=== PATIENT | female | born 2005 | race Hispanic/Latino ===

== ENCOUNTER 2023-03-05 14:15 | Inpatient (IN) | payer OTHER ==
[~2023-03-05] VITALS: Ht 157.5 cm; Wt 78.7 kg
[2023-03-05 14:57] LABS: INFLUENZA TYPE A Negative For Type A (NEGATIVE); INFLUENZA TYPE B Negative For Type B (NEGATIVE)
[2023-03-05 15:04] LABS: SARS-CoV-2, RNA, NAAT NEGATIVE SARS CoV-2 (NEGATIVE)
[2023-03-05 16:03] LABS: BASOPHILS # (AUTO) 0.04 K/uL (0.00-0.20); BASOPHILS % (AUTO) 0.2 % (0.0-5.0); EOSINOPHILS # (AUTO) 0.27 K/uL (0.00-0.70); EOSINOPHILS % (AUTO) 1.4 % (0.0-8.0); HEMATOCRIT 37.8 % (36-48); IMMATURE GRANULOCYTE ABSOLUTE 0.18 K/uL (0-1); LYMPHOCYTES % (AUTO) 5.3 % (21.0-51.0); MEAN CORPUSCULAR HEMOGLOBIN 29.1 pg (27.0-33.0); MEAN CORPUSCULAR HGB CONC 33.6 g/dL (32.0-36.0); MEAN CORPUSCULAR VOLUME 86.7 fL (80-100); MONOCYTES # (AUTO) 1.7 K/uL (0.1-1.0); MONOCYTES % (AUTO) 8.9 % (3.0-13.0); NEUTROPHILS # (AUTO) 15.6 K/uL (1.8-7.7); NEUTROPHILS % (AUTO) 83.2 % (40.0-77.0); PLATELET COUNT (AUTO) 172 K/uL (130-400); RED BLOOD CELL COUNT(AUTO) 4.36 MIL/uL (4.00-5.50); RED CELL DISTRIBUTION WIDTH 13.2 % (11.0-15.5); WHITE BLOOD COUNT (AUTO) 18.8 K/uL (4.8-10.8)
[2023-03-05 16:06] LABS: APPEARANCE,URINE CLOUDY (CLEAR); BILIRUBIN,URINE NEGATIVE (NEGATIVE); COLOR,URINE YELLOW (YELLOW); GLUCOSE, URINE (UA) NEGATIVE (NEGATIVE); KETONES,URINE 60 mg/dL (NEGATIVE); LEUKOCYTE ESTERASE ,URINE 500 Leu/uL (NEGATIVE); NITRATE,URINE 1+ (NEGATIVE); OCCULT BLOOD,URINE MODERATE (NEGATIVE); PROTEIN,URINE 300 mg/dL (NEGATIVE); UROBILINOGEN,URINE 3 mg/dL (0.2-1.0)
[2023-03-05 16:21] LABS: ADD UA MICROSCOPIC YES
[2023-03-05 16:25] LABS: BACTERIA,URINE RARE /HPF (None Seen); MUCUS,URINE MOD LPF (None Seen); NON-SQUAMOUS EPITHELIAL CELL 3 /HPF (0-2); SQUAMOUS EPITHELIAL CELL,UR MOD /HPF (0-2); WBC CLUMP FEW /HPF (0-1); WBC,URINE 51-100 /HPF (0-1)
[2023-03-05 16:32] LABS: CREATININE 0.8 mg/dL (0.5-1.5); POTASSIUM 3.6 mmol/L (3.5-5.1)
[2023-03-05 16:37] LABS: ALBUMIN 2.5 g/dL (3.5-5.0); BILIRUBIN,TOTAL 0.7 mg/dL (0.2-1.0); TOTAL PROTEIN, SERUM 7.6 g/dL (6.0-8.3)
[2023-03-05] MEDS ORDERED: CEFTRIAXONE 1G VIAL IVPB ONE (17:00)
[2023-03-05] MEDS: ACETAMINOPHEN 500 MG TABLET PO PRN (18:04)
[2023-03-05] MEDS: LACTATED RINGERS 1000ML 1,000 ML IV PRN ×2 (18:04→23:30)
[2023-03-05 18:31] LABS: HEMATOCRIT 35.7 % (36-48); MEAN CORPUSCULAR HEMOGLOBIN 29.3 pg (27.0-33.0); MEAN CORPUSCULAR HGB CONC 33.3 g/dL (32.0-36.0); MEAN CORPUSCULAR VOLUME 87.9 fL (80-100); RED BLOOD CELL COUNT(AUTO) 4.06 MIL/uL (4.00-5.50); RED CELL DISTRIBUTION WIDTH 13.3 % (11.0-15.5); WHITE BLOOD COUNT (AUTO) 22.2 K/uL (4.8-10.8)
[2023-03-05 18:47] LABS: INR 0.93 (0.85-1.15); PROTHROMBIN TIME 10.5 SEC (9.6-11.6)
[2023-03-05 18:48] LABS: PARTIAL THROMBOPLASTIN TIME 30.8 SEC (26.3-35.5)
[2023-03-06] MEDS: ACETAMINOPHEN 500 MG TABLET PO PRN ×2 (07:20→21:07)
[2023-03-06 12:10] VITALS: BP 116/74; PULSE 101; RESP 16
[2023-03-06] MEDS: LACTATED RINGERS 1000ML 1,000 ML IV PRN (12:18)
[2023-03-06 13:47] LABS: RAPID PLASMA REAGIN NONREACTIVE (NONREACTIVE)
[2023-03-06 16:27] VITALS: BP 105/69; PULSE 107; RESP 16
[2023-03-06] MEDS: CEFTRIAXONE 1G VIAL IVPB SCH (17:53)
[2023-03-06 19:18] VITALS: BP 112/74; PULSE 115; RESP 18
[2023-03-06 21:07] VITALS: TEMP 99.8
[2023-03-06 23:04] VITALS: BP 102/58; PULSE 105; RESP 18
[2023-03-07] VITALS (7 sets, daily range): BP systolic 108–120; BP diastolic 67–78; PULSE 92–134; RESP 18–20
[2023-03-07] MEDS: LACTATED RINGERS 1000ML 1,000 ML IV PRN ×2 (02:14→18:06)
[2023-03-07 06:48] LABS: HEMATOCRIT 29.9 % (36-48); MEAN CORPUSCULAR HEMOGLOBIN 29.2 pg (27.0-33.0); MEAN CORPUSCULAR HGB CONC 33.8 g/dL (32.0-36.0); MEAN CORPUSCULAR VOLUME 86.4 fL (80-100); RED BLOOD CELL COUNT(AUTO) 3.46 MIL/uL (4.00-5.50); RED CELL DISTRIBUTION WIDTH 13.4 % (11.0-15.5); WHITE BLOOD COUNT (AUTO) 12.6 K/uL (4.8-10.8)
[2023-03-07] MEDS: CEFTRIAXONE 1G VIAL IVPB SCH (18:06)
[2023-03-08] MEDS: LACTATED RINGERS 1000ML 1,000 ML IV PRN (03:10)
[2023-03-08 03:53] VITALS: BP 108/59; PULSE 114; RESP 20
[2023-03-08 08:00] VITALS: BP 117/78; PULSE 110; RESP 18
[2023-03-08] MEDS ORDERED: MACR100 PO (10:11)
== END 2023-03-08 10:50 | disposition home or self-care (01) | DRG 807 ==
LOC: EDH 14:15 → LDH 14:16 → OBSVTOIN 14:16 → WSH 19:54
PROVIDERS: ADMIT Obstetrics & Gynecology; ATTEND Obstetrics & Gynecology
PROC: 10E0XZZ Delivery of Products of Conception, External Approach (ICD-10-PCS; principal; 2023-03-05)
DX: O23.43 Unspecified infection of urinary tract in pregnancy, third trimester (principal); Z37.0 Single live birth; Z3A.38 38 weeks gestation of pregnancy; Z20.822 Contact with and (suspected) exposure to COVID-19
CPT/HCPCS: 36415; 59025; 76805; 76819; 80053; 81001; 83605; 84550; 85025; 85027; 85384; 85610; 85730; 86592; 86701; 86850; 86900; 86901; 87040; 87077; 87088; 87186; 87340; 87390; 87635; 87804; C9803; G0378; J0696; J7120

== ENCOUNTER 2023-03-26 22:46 | Inpatient (IN) | payer OTHER ==
[~2023-03-26] VITALS: Ht 160 cm; Wt 74.8 kg
[~2023-03-26 22:46] MED LIST: MACR100 PO
[2023-03-26 23:25] LABS: APPEARANCE,URINE CLEAR (CLEAR); BILIRUBIN,URINE NEGATIVE (NEGATIVE); COLOR,URINE YELLOW (YELLOW); GLUCOSE, URINE (UA) NEGATIVE (NEGATIVE); KETONES,URINE NEGATIVE (NEGATIVE); LEUKOCYTE ESTERASE ,URINE 500 Leu/uL (NEGATIVE); NITRATE,URINE NEGATIVE (NEGATIVE); OCCULT BLOOD,URINE MODERATE (NEGATIVE); PROTEIN,URINE 20 mg/dL (NEGATIVE)
[2023-03-26 23:26] LABS: ADD UA MICROSCOPIC YES
[2023-03-26 23:28] LABS: BACTERIA,URINE RARE /HPF (None Seen); MUCUS,URINE FEW LPF (None Seen); RBC,URINE 0-1 /HPF (0-1); SQUAMOUS EPITHELIAL CELL,UR MOD /HPF (0-2)
[2023-03-26] MEDS ORDERED: LACTATED RINGERS 1000ML IV PRN (23:30)
[2023-03-26 23:31] LABS: AMPHET/METH SCREEN,URINE NEGATIVE (NEGATIVE); BARBITURATE SCREEN, URINE NEGATIVE (NEGATIVE); BENZODIAZEPINES SCREEN,URINE NEGATIVE (NEGATIVE); CANNABINOID SCREEN,URINE NEGATIVE (NEGATIVE); COCAINE SCREEN,URINE NEGATIVE (NEGATIVE); OPIATE SCREEN,URINE NEGATIVE (NEGATIVE); PHENCYCLIDINE SCREEN,URINE NEGATIVE (NEGATIVE)
[2023-03-27 00:05] VITALS: BP 120/78
[2023-03-27] MEDS: LACTATED RINGERS 1000ML 1,000 ML IV PRN ×2 (00:25→10:03)
[2023-03-27] MEDS ORDERED: AMPICILLIN 2GM+NS 100ML 100 ML IV SCH (00:30)
[2023-03-27 00:35] LABS: HEMATOCRIT 34.6 % (36-48); MEAN CORPUSCULAR HEMOGLOBIN 29.2 pg (27.0-33.0); MEAN CORPUSCULAR HGB CONC 32.4 g/dL (32.0-36.0); MEAN CORPUSCULAR VOLUME 90.1 fL (80-100); RED BLOOD CELL COUNT(AUTO) 3.84 MIL/uL (4.00-5.50); RED CELL DISTRIBUTION WIDTH 14.2 % (11.0-15.5); WHITE BLOOD COUNT (AUTO) 6.8 K/uL (4.8-10.8)
[2023-03-27] MEDS: AMPICILLIN 1GM+NS 50ML 50 ML IV SCH ×4 (04:04→15:49)
[2023-03-27] MEDS ORDERED: MEPERIDINE-PF 50 MG/ML SYG IVP ONE (11:30)
[2023-03-27] MEDS ORDERED: PROMETHAZINE HCL 25 MG/ML 1ML AMPULE IM ONE (11:30)
[2023-03-27 12:17] LABS: RAPID PLASMA REAGIN NONREACTIVE (NONREACTIVE)
[2023-03-27] MEDS ORDERED: OXYTOCIN-LR 30 UNITS/500ML 500 ML IV SCH ×2 (14:00)
[2023-03-27] MEDS ORDERED: ROPIVACAINE 0.2% 100ML VIAL 100 ML EP SCH (16:30)
[2023-03-27] MEDS ORDERED: LACTATED RINGERS 500 ML 500 ML IV PRN (16:30)
[2023-03-27] MEDS ORDERED: NALOXONE HCL 0.4 MG/1 ML ML IV PRN (16:30)
[2023-03-27] MEDS ORDERED: EPHEDRINE SULFATE 50 MG/ML AMPULE IVP PRN (16:30)
[2023-03-27] MEDS ORDERED: FENTANYL CITRATE PF 50 MCG/1 ML 2ML VIAL ONE (16:33)
[2023-03-27] MEDS ORDERED: CEFAZOLIN SODIUM 1 GM VIAL IVPB PRN (19:30)
[2023-03-27] MEDS ORDERED: CEFAZOLIN SODIUM 2 GM VIAL IVPB ONE (20:12)
[2023-03-27] MEDS ORDERED: MORPHINE PF 100MG/10ML AMP IV ONE (20:35)
[2023-03-27] MEDS ORDERED: OXYTOCIN-LR 30 UNITS/500ML 500 ML IV PRN (23:30)
[2023-03-27] MEDS ORDERED: PROMETHAZINE HCL 25 MG/ML 1ML AMPULE IM PRN (23:30)
[2023-03-27] MEDS ORDERED: 0.9%NACL 10ML VIAL IVP PRN (23:30)
[2023-03-27] MEDS ORDERED: DEXTROSE 5 %-0.45 % NACL 1,000 ML IV PRN (23:30)
[2023-03-27] MEDS ORDERED: MEPERIDINE-PF 75 MG/ML SYG IM PRN (23:30)
[2023-03-28] VITALS (7 sets, daily range): BP systolic 109–127; BP diastolic 58–82; PULSE 91–103; RESP 18–20
[2023-03-28] MEDS ORDERED: ACETAMINOPHEN 500 MG TABLET PO PRN (00:30)
[2023-03-28] MEDS ORDERED: HYDROCODONE/ACETAMINOPHEN 5/325 MG TAB PO PRN (00:30)
[2023-03-28] MEDS ORDERED: ACETAMINOPHEN WITH CODEINE 1 TAB TAB PO PRN (00:30)
[2023-03-28] MEDS ORDERED: LANOLIN 30GM OINTMENT TP PRN (00:30)
[2023-03-28] MEDS ORDERED: BISACODYL 10 MG SUPP.RECT RC PRN (00:30)
[2023-03-28] MEDS ORDERED: DIPHENHYDRAMINE HCL 25 MG CAPSULE PO PRN (00:30)
[2023-03-28] MEDS: AMPICILLIN 1GM+NS 50ML 50 ML IV SCH ×3 (00:30→02:16)
[2023-03-28 06:59] LABS: HEMATOCRIT 29.9 % (36-48); MEAN CORPUSCULAR HGB CONC 31.8 g/dL (32.0-36.0); MEAN CORPUSCULAR VOLUME 91.2 fL (80-100); RED BLOOD CELL COUNT(AUTO) 3.28 MIL/uL (4.00-5.50); RED CELL DISTRIBUTION WIDTH 14.5 % (11.0-15.5); WHITE BLOOD COUNT (AUTO) 13.9 K/uL (4.8-10.8)
[2023-03-28] MEDS: SIMETHICONE 80 MG TAB.CHEW PO PRN ×4 (09:03→20:26)
[2023-03-28] MEDS: DOCUSATE SODIUM 100 MG CAP PO SCH ×2 (09:03→20:26)
[2023-03-28] MEDS: IBUPROFEN 600 MG TABLET PO PRN ×2 (09:04→14:38)
[2023-03-29 04:01] VITALS: BP 121/82; PULSE 103; RESP 18
[2023-03-29] MEDS: IBUPROFEN 600 MG TABLET PO PRN (04:10)
[2023-03-29 07:15] VITALS: BP 121/77; PULSE 82; RESP 18
[2023-03-29] MEDS: SIMETHICONE 80 MG TAB.CHEW PO PRN (08:55)
[2023-03-29] MEDS: DOCUSATE SODIUM 100 MG CAP PO SCH (08:55)
[2023-03-29] MEDS ORDERED: FERS325 PO (09:50)
[2023-03-29] MEDS ORDERED: ACET-2079 PO (09:51)
== END 2023-03-29 11:15 | disposition home or self-care (01) | DRG 788 ==
LOC: EDH 22:46 → LDH 23:08 → OBSVTOIN 23:08 → WSH 03-28 00:18
PROVIDERS: ADMIT Obstetrics & Gynecology; ATTEND Obstetrics & Gynecology
PROC: 10D00Z1 Extraction of Products of Conception, Low, Open Approach (ICD-10-PCS; principal; 2023-03-27 20:02)
DX: O62.2 Other uterine inertia (principal); Z37.0 Single live birth; Z3A.39 39 weeks gestation of pregnancy
CPT/HCPCS: 36415; 59510; 80305; 81001; 85027; 86592; 86701; 86850; 86900; 86901; 87088; 87340; 87390; 96360; 96361; A4344; G0378; J0290; J0690; J2175; J2274; J2550; J2795; J3010; J3490; J7120; A4248; L0625